=== PATIENT | female | born 1955 | race Caucasian/White ===

== ENCOUNTER 2016-08-29 15:47 | Outpatient (CLI) | payer BC | END 2016-08-29 15:48 | disposition home or self-care (01) | DX: G47.30 Sleep apnea, unspecified (principal); G47.8 Other sleep disorders; G47.10 Hypersomnia, unspecified; R06.83 Snoring ==

== ENCOUNTER 2016-10-22 14:11 | Outpatient (CLI) | payer BC | END 2016-10-22 14:12 | disposition home or self-care (01) | LOC: SC 14:11 | PROVIDERS: ATTEND Nurse Practitioner Family | DX: G47.33 Obstructive sleep apnea (adult) (pediatric) (principal) | CPT/HCPCS: 99212; 99214 ==

== ENCOUNTER 2016-12-26 09:05 | Outpatient (CLI) | payer BC | END 2016-12-26 09:06 | disposition home or self-care (01) | LOC: SC 09:05 | PROVIDERS: ATTEND Nurse Practitioner Family | DX: G47.33 Obstructive sleep apnea (adult) (pediatric) (principal) | CPT/HCPCS: 99212; 99214 ==

== ENCOUNTER 2017-01-05 08:55 | Outpatient (CLI) | payer BC ==
[2017-01-05 09:25] LABS: ALBUMIN/GLOBULIN RATIO 1.2 (1.0-2.2); BILIRUBIN,TOTAL 1.1 mg/dL (0.2-1.0); BUN - BLOOD UREA NITROGEN 19 mg/dL (6-20); CALCIUM 9.5 mg/dL (8.5-10.3); CARBON DIOXIDE - CO2 28 mmol/L (21-32); CHLORIDE 103 mmol/L (101-111); CHOLESTEROL 248 mg/dL; CREATININE 0.8 mg/dL (0.4-1.0); GFR - MDRD 73 (>89); GLUCOSE 98 mg/dL (70-100); HDL CHOLESTEROL 50 mg/dL; LDL/HDL RATIO 3.2 (<4.4); POTASSIUM 4.1 mmol/L (3.5-5.0); SODIUM 139 mmol/L (135-145); TOTAL PROTEIN 7.5 g/dL (6.7-8.2); TRIGLYCERIDES 198 mg/dL; VLDL CHOLESTEROL 40 mg/dL
== END 2017-01-05 08:56 | disposition home or self-care (01) ==
LOC: LAB 08:55
PROVIDERS: ATTEND Registered Nurse
DX: E66.9 Obesity, unspecified (principal); E78.5 Hyperlipidemia, unspecified; E03.9 Hypothyroidism, unspecified; E55.9 Vitamin D deficiency, unspecified
CPT/HCPCS: 36415; 80053; 80061; 82306; 84443

== ENCOUNTER 2017-01-16 16:04 | Outpatient (CLI) | payer BC ==
--- NOTE | 2017-01-17 10:17 | Mammography Report ---
DIGITAL SCREENING MAMMOGRAM: 01/16/2017 CLINICAL INDICATION: A 61-year-old with history of late childbearing, for screening. COMPARISON: 07/2014, 11/2012, 10/2011, 06/2010, 12/2008. TECHNIQUE: Routine CC and MLO projections were obtained of the breasts. FINDINGS: Scattered fibroglandular tissue is present within the breasts. There are no dominant julissa s, suspicious microcalcifications, or secondary signs of malignancy. In comparison to the previous st udies, there are no significant changes. ASSESSMENT: NO MAMMOGRAPHIC EVIDENCE OF MALIGNANCY. NO SIGNIFICANT INTERVAL CHANGES. RECOMMENDATION: Screening mammography is recommended annually. BIRADS category 1 - negative. STANDARD QUALIFYING STATEMENTS 1. This examination was reviewed with the aid of Computed-Aided Detection (CAD). 2. A negative or benign imaging report should not delay biopsy if clinically suspicious findings are present. Consider surgical consultation if warranted. More than 5% of cancers are not identified by i maging. 3. Dense breasts may obscure an underlying neoplasm. JOB #: [id number] EXT JOB #:[id number]
== END 2017-01-16 16:05 | disposition home or self-care (01) ==
LOC: DI 16:04
PROVIDERS: ATTEND Registered Nurse
DX: Z12.31 Encounter for screening mammogram for malignant neoplasm of breast (principal)
CPT/HCPCS: 77067

== ENCOUNTER 2017-04-17 15:16 | Outpatient (CLI) | payer BC | END 2017-04-17 15:17 | disposition home or self-care (01) | LOC: SC 15:16 | PROVIDERS: ATTEND Nurse Practitioner Family | DX: G47.33 Obstructive sleep apnea (adult) (pediatric) (principal) | CPT/HCPCS: 99212; 99214 ==

== ENCOUNTER 2018-03-18 14:53 | Outpatient (CLI) | payer BC | END 2018-03-18 14:54 | disposition home or self-care (01) | LOC: SC 14:53 | PROVIDERS: ATTEND Nurse Practitioner Family | DX: G47.33 Obstructive sleep apnea (adult) (pediatric) (principal) | CPT/HCPCS: 99212; 99213 ==

== ENCOUNTER 2018-09-20 12:59 | Outpatient (CLI) | payer BC ==
[2018-09-20] MEDS ORDERED: ALBUTEROL NEB 2.5 MG/3 ML INH SCH (13:09)
== END 2018-09-20 13:00 | disposition home or self-care (01) ==
LOC: RT 12:59
PROVIDERS: ATTEND Nurse Practitioner Family
DX: R05 Cough (principal)
CPT/HCPCS: 94060

== ENCOUNTER 2018-11-10 14:53 | Outpatient (CLI) | payer BC ==
--- NOTE | 2018-11-11 09:43 | Mammography Report ---
Reason: ENCOUNTER FOR SCREENING MAMMOGRAM FOR MALIGNANT NE Procedure Date: 11/10/2018 Accession Number: [id number] / [id number] Procedure: [facility] - Screening Mammo w/Diallo CPT Code: FULL RESULT: EXAM: Screening Mammo w/Diallo DATE: 11/10/2018 3:26 PM CLINICAL HISTORY: History of early menses and late childbearing. TECHNIQUE: (B) - Bilateral CC and MLO views were obtained. COMPARISON: 01/16/2017 through 11/02/2011. PARENCHYMAL PATTERN: (A) - The breast(s) demonstrate(s) scattered fibroglandular densities. FINDINGS: There are no suspicious masses, calcifications, or areas of distortion. IMPRESSION: Negative examination. BI-RADS category 1. RECOMMENDATION: (ANNUAL) - Recommend routine annual screening mammography. BI-RADS CATEGORY: (1) - Negative. STANDARD QUALIFYING STATEMENTS: 1. This examination was not reviewed with the aid of Computer-Aided Detection (CAD). 2. A negative or benign imaging report should not preclude biopsy if clinically suspicious findings are present. 3. Dense breasts may obscure an underlying neoplasm. 4. This examination was reviewed with the aid of 3D breast imaging (tomosynthesis).
== END 2018-11-10 14:54 | disposition home or self-care (01) ==
LOC: DI 14:53
PROVIDERS: ATTEND Registered Nurse
DX: Z12.31 Encounter for screening mammogram for malignant neoplasm of breast (principal)
CPT/HCPCS: 77063; 77067

== ENCOUNTER 2019-04-15 15:02 | Outpatient (CLI) | payer BC ==
[2019-04-15 16:07] VITALS: BP 100/70
--- NOTE | 2019-04-15 16:07 | SLEEP CARE CONSULTATION ---
Information from patient questionnaire entered by Arleth Nice. I have reviewed and concur with the information entered by Arleth Nice. This document represents the service I personally performed and the decisions made by me, Maria Hill, RN, MSN, [employer]EL[employer]GER. History of Present Illness Previous diagnosis: Moderate, Obstructive Sleep Apnea-Hypopnea Syndrome AHI: 20.3 Reason for follow up: annual (last seen 2018) Equipment type: CPAP Equipment obtained from: [facility] Mask style: Nasal (Dreamwear) Mask brand: Respironics Backup mask available: No Last cushion change: 1 month CPAP Compliance Data - Data Reviewed with Patient Average duration of nightly device use: 7.5 Compliance rate %: 98.9 (180 days) Current pressure setting (cmH2O): 10 Humidity settin Heated hose settin Average residual AHI: 0.7 Average large leak: 5 min 36 sec Subjective Patient concerns: reports: air blowing in eyes (rare occasion), condensation in mask/hose (occasionally), dry mouth, nose, throat, other (mask lines most days. ). denies: aerophagia, mask discomfort, mask leak noise, nasal congestion, epistaxis Observed to snore while using device: No Current pressure setting perceived as: comfortable On therapy, patient: reports: sleeping better, awakening more refreshed, being more awake and alert during the day, more rested overall. denies: drowsiness while driving Initial [place] Sleepiness Scale score: 9 Current [place] Sleepiness Scale score: 3 Allergies and Home Medications Known drug allergies: No Home medication list reviewed: Yes (see list - added glucosamine and B12 / started inhaler bid for COPD) Allergy and home medication list: Medication List Medication Name (generic/name brand) Strength & Dosage Levothyroxine Sodium 100mcg tab one daily Multivitamin Tab one daily Fish Oil 1200mg cap one daily Calcium 500mg tab one daily Vitamin D 1000unit tab one daily Glucosamine 2 daily B12 daily Respimat inhaler 1 inhalation bid Review of Systems Review of systems same as previous: No (Just diagnosed with possible COPD) Physical Exam Blood Pressure: 100/70 Heart Rate: 70 O2 Saturation: 94 Height: 5 ft 6 in Weight: 278 lb 6.4 oz Body Mass Index: 44.9 BMI Classification: Obesity Class 3 Impression and Plan 1. Obstructive Sleep Apnea-Hypopnea Syndrome, moderate, with good treatment compliance and good apnea control. On CPAP therapy, the patient has better sleep quality and is more rested overall. To reduce vibratory snore, I showed her a CPAP pillow. This and other styles can be bought online. To reduce oral dryness, she was instructed to increase humidity and reduce heated hose as shown on sample device. Printed instructions given with rationale discussed for changing. To reduce mask lines, I showed her Pad A Cheek barriers and phamplet given. She is planning on working on her weight loss and feels she will be more successful after she retires next year. Thus I explained how significant weight loss will reduce her apnea severity, CPAP pressure requirements and overall health risks associated with obesity. She was informed of symptoms to report for CPAP pressure adjustment. Patient's apnea severity and rationale for treatment to reduce apnea, improve sleep quality and reduce cardiovascular and cerebrovascular events was reviewed. * Continue CPAP pressure at 10 cmH2O * Consider CPAP pillow, Pad A cheek cloth barrier * Adjust humidity and heated hose * Notify me if snoring with mask or feeling that the pressure is too much or too little * Attempt to lose weight * Return for follow up in 1 year or sooner if concerns arise I spent 100% of this 35 minute visit face to face with the patient with greater than 50% of this was spent time counseling the patient and coordination of care.
== END 2019-04-15 15:03 | disposition home or self-care (01) ==
LOC: SC 15:02
PROVIDERS: ATTEND Nurse Practitioner Family
DX: G47.33 Obstructive sleep apnea (adult) (pediatric) (principal); E66.9 Obesity, unspecified; Z68.41 Body mass index [BMI] 40.0-44.9, adult
CPT/HCPCS: 99212; 99214

== ENCOUNTER 2019-11-20 07:00 | Outpatient (CLI) | payer BC ==
--- NOTE | 2019-11-20 11:49 | Ultrasound Report ---
PROCEDURE: Abdomen Limited INDICATIONS: NONSPEC ELEVATED LEVELS OF TRANSAMNS LACTIC ACID TECHNIQUE: Real-time scanning was performed of the abdominal and retroperitoneal organs, with image documentatio n. COMPARISON: None. FINDINGS: Liver: Liver is normal in size measuring 16.2 cm in length. The parenchyma is mildly coarse and diff usely hyperechoic. No discrete masses are visible. Appropriate direction of flow in the portal vein. Gallbladder: The gallbladder is normal without stones or sludge. Normal wall thickness at 2 mm. No pe richolecystic fluid or sonographic Rodriguez sign. There is relative hypoechogenicity in the gallbladder fossa along the liver surface secondary to focal fatty sparing. Biliary ducts: Intrahepatic bile ducts are non-dilated. Extrahepatic bile duct caliber measures 5 m m. Normal is 6-7 mm or less in diameter, or 10 mm or less post-cholecystectomy. Pancreas: Visualized portions of the pancreas are sonographically normal. Kidneys: Right kidney measures 11.3 cm long; the cortex is normal thickness and echogenicity. No hy dronephrosis or nephrolithiasis. No solid masses. IVC: Intrahepatic inferior vena cava is patent. Miscellaneous: No free abdominal fluid. IMPRESSION: 1. Hepatic hyperechogenicity and parenchymal coarsening suggestive of hepatic steatosis or other intr insic liver disease. 2. Normal gallbladder and no biliary dilatation. Reviewed by: Kiley Magana MD on 11/20/2019 11:48 AM PDT Approved by: Kiley Magana MD on 11/20/2019 11:48 AM PDT Station ID: [id number]
== END 2019-11-20 07:01 | disposition home or self-care (01) ==
LOC: DI 07:00
PROVIDERS: ATTEND Nurse Practitioner Family
DX: R74.0 Nonspecific elevation of levels of transaminase and lactic acid dehydrogenase [LDH] (principal)
CPT/HCPCS: 76705

== ENCOUNTER 2020-01-26 13:04 | Outpatient (CLI) | payer BC ==
--- NOTE | 2020-01-26 16:59 | XRAY Report ---
PROCEDURE: Ankle 2 View RT INDICATIONS: PAIN IN RIGHT ANKLE JOINT TECHNIQUE: 2 views of the ankle were acquired. COMPARISON: None. FINDINGS: Bones: No acute fractures or dislocations. Moderate degenerative changes of the tibiotalar joint. M ild cortical irregularity of the medial ankle gutter and medial malleolus. There is overlying soft ti ssue edema. Prominent plantar calcaneal and retrocalcaneal spurring. Ankle mortise is normally aligne d. No suspicious bony lesions. Soft tissues: No tibiotalar joint effusion. Achilles tendon appears normal. IMPRESSION: Moderate tibiotalar osteoarthritic changes with mild cortical irregularity of the medial malleolus and medial ankle gutter. Overlying soft tissue edema. Recommend excluding concurrent infla mmatory infectious symptoms. Prominent plantar calcaneal and retrocalcaneal enthesopathy. Reviewed by: Kam Felipe MD on 01/26/2020 4:58 PM PDT Approved by: Kam Felipe MD on 01/26/2020 4:58 PM PDT Station ID: [id number]
--- NOTE | 2020-01-26 17:19 | XRAY Report ---
PROCEDURE: Knee 3 View BILAT INDICATIONS: BILATERAL RIGHT KNEE PAIN TECHNIQUE: 3 views of the bilateral knee(s) were acquired. COMPARISON: None. FINDINGS: Bones: No acute fractures or dislocations. Tricompartmental degenerative changes of the bilateral kn ees. Distal quadriceps enthesopathy of the superior right patella. No suspicious bony lesions. Soft tissues: Small left greater than right bilateral joint effusion. No suspicious soft tissue calc ifications. IMPRESSION: Tricompartmental osteoarthrosis of the bilateral knee. Small left greater than right bilateral joint effusion. Distal quadriceps enthesopathy of the right patella/knee. Reviewed by: Kam Felipe MD on 01/26/2020 5:18 PM PDT Approved by: Kam Felipe MD on 01/26/2020 5:18 PM PDT Station ID: [id number]
== END 2020-01-26 13:05 | disposition home or self-care (01) ==
LOC: DI.S 13:04
PROVIDERS: ATTEND Registered Nurse
DX: M19.071 Primary osteoarthritis, right ankle and foot (principal); M17.0 Bilateral primary osteoarthritis of knee; M77.31 Calcaneal spur, right foot; M76.51 Patellar tendinitis, right knee

== ENCOUNTER 2020-02-18 12:46 | Outpatient (CLI) | payer BC ==
--- NOTE | 2020-02-18 14:38 | DEXA Report ---
PROCEDURE: Dexa Spine and/or Hip INDICATIONS: OSTEOPENIA TECHNIQUE: Dual energy x-ray absorptiometry (DXA) was performed on a [employer] System. Regions measur ed are the AP Spine, femoral neck, and if needed forearm. COMPARISON: 07/29/2014. FINDINGS: Lumbar Spine: Bone Mineral Density 1.428 g/cm/cm,T score 1.9, normal Left Femoral Neck: Bone Mineral Density 0.942 g/cm/cm, T score -0.5, normal (T score greater or equal to -1.0: NORMAL) (T score from -1.1 to -2.4: OSTEOPENIA) (T score less than or equal to -2.5 to: OSTEOPOROSIS) Impression: Normal bone density. Patients with diagnosis of osteoporosis or osteopenia should have regular bone mineral density assess ment. For those eligible for Medicare, routine testing is allowed once every 2 years. Testing frequ ency can be increased for patients who have rapidly progressing disease or for those who are receivin g medical therapy to restore bone mass. Reviewed by: Kam Felipe MD on 02/18/2020 2:36 PM PDT Approved by: Kam Felipe MD on 02/18/2020 2:36 PM PDT Station ID: [id number]
== END 2020-02-18 12:47 | disposition home or self-care (01) ==
LOC: DI 12:46
PROVIDERS: ATTEND Registered Nurse
DX: Z78.0 Asymptomatic menopausal state (principal)
CPT/HCPCS: 77080

== ENCOUNTER 2020-04-05 10:07 | Outpatient (CLI) | payer BC ==
--- NOTE | 2020-04-05 10:54 | SLEEP CARE CONSULTATION ---
Information from patient questionnaire entered by Arleth Nice. I have reviewed and concur with the information entered by Arleth Nice. This document represents the service I personally performed and the decisions made by me, Neeru Padron MD, [facility]. History of Present Illness Service Date and Time: 04/05/2020 1007 Previous diagnosis: Moderate, Obstructive Sleep Apnea-Hypopnea Syndrome AHI: 20.3 (in 2017) Reason for follow up: annual (last seen 04/2019) Equipment type: CPAP Equipment obtained from: [email or web address] Mask style: Nasal Mask brand: Respironics (Dreamwear) Backup mask available: Yes Prior sleep studies: Yes Year and Where: 2017 - [facility] Type of Sleep Study: Home sleep study HPI additional information: HPI: Ms. Hurley returns today to follow up on the nasal CPAP therapy. She was diagnosed to have moderate obstructive sleep apnea-hypopnea syndrome. Her durable medical supplier is [email or web address]. The patient wears with a Respironics DreamWear nasal cushion mask. She reports using the device nightly and all through the night. The compliance data show usage in 180 out of the past 180 nights, averaging 8.3 hours a night. The > 4 hour compliance rate for the past 180 days is 100%. She complained of dry mouth. The heated humidifier is set at 4. She thinks that the pressure of 10 cmH2O is comfortable. On the CPAP therapy she notices improvement in her sleep quality, and that she wakes up feeling fresher in the morning and more awake/alert during the day. The [place] Sleepiness Scale score 3. Her notices no snore at all. The average residual AHI is 0.7: and average time in large leak per day is 53 seconds. CPAP Compliance Data - Data Reviewed with Patient Average duration of nightly device use: 8 hr 21 min Compliance rate %: 100 (180 days) Current pressure setting (cmH2O): 10 Humidity settin Heated hose settin Average residual AHI: 0.7 Average large leak: 53 sec Subjective Patient concerns: reports: dry mouth, nose, throat Initial [place] Sleepiness Scale score: 9 (in 2017) Current [place] Sleepiness Scale score: 3 Allergies and Home Medications Drug allergies reviewed: Yes Home medication list reviewed: Yes Review of Systems Review of systems same as previous: Yes Physical Exam Vital signs obtained and entered by: To minimize the risk of COVID-19 exposure, detailed exam was not performed. Height: 5 ft 6 in Weight: 250 lb Body Mass Index: 40.3 BMI Classification: Morbidly Obese Impression and Plan IMPRESSION: 1. Obstructive Sleep Apnea-Hypopnea Syndrome, moderate (20.3), with the patient continuing to do well on nasal CPAP therapy. She has excellent compliance and significant clinical improvement. The current pressure appears effective and comfortable. Her mask fits well. Overall, she is very satisfied with treatment and plans to continue with it long-term. No adjustment is necessary today. Because [facility] discontinues its CPAP business, I will switch her to a different durable medical supplier. She would like to use [employer]. PLAN: 1. Continue with CPAP set at 10 cmH2O. 2. Try to lose weight 3. Prescription made for supplies and sent to [facility] in [place]. 4. Return in one year for follow up or earlier if there is any problem with the treatment. Visit Type: In Office Time Spent with Patient (minutes): 15 Provider Statement: I spent 100% of the Face to Face Visit with the patient with greater than 50% spent counseling the patient and coordination of care.
== END 2020-04-05 10:08 | disposition home or self-care (01) ==
LOC: SC 10:07
PROVIDERS: ATTEND Internal Medicine Pulmonary Disease
DX: G47.33 Obstructive sleep apnea (adult) (pediatric) (principal); E66.01 Morbid (severe) obesity due to excess calories; Z68.41 Body mass index [BMI] 40.0-44.9, adult
CPT/HCPCS: 99212; 99213

== ENCOUNTER 2020-07-19 07:00 | Outpatient (CLI) | payer BC ==
[2020-07-19 16:26] LABS: BILIRUBIN,URINE NEGATIVE (NEGATIVE); GLUCOSE, URINE (UA) NEGATIVE (NEGATIVE); KETONES,URINE (UA) NEGATIVE (NEGATIVE); LEUKOCYTE ESTERASE, URINE TRACE (NEGATIVE); NITRITE,URINE NEGATIVE (NEGATIVE); OCCULT BLOOD,URINE NEGATIVE (NEGATIVE); PROTEIN,URINE NEGATIVE (NEGATIVE); UROBILINOGEN,URINE 0.2 (NORMAL) E.U./dL (NORMAL)
[2020-07-19 16:52] LABS: BACTERIA,URINE Moderate /HPF (None Seen); CLARITY,URINE HAZY (CLEAR); RBC,URINE None Seen /HPF (0-5); SQUAMOUS EPITHELIAL CELL,UR FEW Squamous (<= Few)
== END 2020-07-19 23:59 | disposition home or self-care (01) ==
LOC: LAB.R 07:00
PROVIDERS: ATTEND Obstetrics & Gynecology
DX: R32 Unspecified urinary incontinence (principal)
CPT/HCPCS: 81001; 87086

== ENCOUNTER 2020-07-19 14:19 | Outpatient (CLI) | payer BC ==
[2020-07-19 20:38] LABS: ESTIMATED AVERAGE GLUCOSE 111 mg/dL (70-100); HEMOGLOBIN A1c% 5.5 % (4.27-6.07)
== END 2020-07-19 14:20 | disposition home or self-care (01) ==
LOC: LAB 14:19
PROVIDERS: ATTEND Obstetrics & Gynecology
DX: Z13.1 Encounter for screening for diabetes mellitus (principal); R32 Unspecified urinary incontinence
CPT/HCPCS: 36415; 82947; 83036

== ENCOUNTER 2020-09-13 08:00 | Outpatient (CLI) | payer BC ==
[2020-09-14 22:43] LABS: BACTERIAL VAGINOSIS DNA NEGATIVE (NEGATIVE); CANDIDA GLABRATA DNA NEGATIVE (NEGATIVE); CANDIDA GROUP DNA NEGATIVE (NEGATIVE); CANDIDA KRUSEI DNA NEGATIVE (NEGATIVE); TRICHOMONAS VAGINALIS DNA NEGATIVE (NEGATIVE)
== END 2020-09-13 23:59 | disposition home or self-care (01) ==
LOC: LAB.R 08:00
PROVIDERS: ATTEND Obstetrics & Gynecology
DX: R32 Unspecified urinary incontinence (principal)
CPT/HCPCS: 87661; 87801

== ENCOUNTER 2020-09-20 08:00 | Outpatient (CLI) | payer BC ==
[2020-09-21 21:52] LABS: BACTERIAL VAGINOSIS DNA NEGATIVE (NEGATIVE); CANDIDA GLABRATA DNA NEGATIVE (NEGATIVE); CANDIDA GROUP DNA NEGATIVE (NEGATIVE); CANDIDA KRUSEI DNA NEGATIVE (NEGATIVE); TRICHOMONAS VAGINALIS DNA NEGATIVE (NEGATIVE)
== END 2020-09-20 23:59 | disposition home or self-care (01) ==
LOC: LAB.WC 08:00
PROVIDERS: ATTEND Obstetrics & Gynecology
DX: L29.2 Pruritus vulvae (principal)
CPT/HCPCS: 87661; 87801

== ENCOUNTER 2020-11-09 08:56 | Outpatient (CLI) | payer BC ==
--- NOTE | 2020-11-10 10:50 | Mammography Report ---
BILATERAL DIGITAL SCREENING MAMMOGRAM 3D/2D: 11/09/2020 CLINICAL: Routine screening. Comparison is made to exams dated: 11/10/2018 mammogram, 01/16/2017 mammogram, and 07/29/2014 mammogram - [facility]. The tissue of both breasts is predominantly fatty. No significant masses, calcifications, or other findings are seen in either breast. There has been no significant interval change. IMPRESSION: NEGATIVE There is no mammographic evidence of malignancy. A 1 year screening mammogram is recommended. This exam was interpreted at Station ID: [id number]. NOTE: For mammograms, a report in lay terms will be sent to the patient. Approximately 15% of breast malignancies will not be visualized mammographically. In the management of a palpable breast mass, a negative mammogram must not discourage biopsy of a clinically suspicious lesion. Electronically Signed By: Kiley hitchcock/penrad:11/09/2020 10:05:13 ACR BI-RADS Category 1: Negative 3341F PARENCHYMAL PATTERN: (F) - The breast(s) demonstrate(s) diffuse fatty replacement. BI-RADS CATEGORY: (1) - 1 RECOMMENDATION: (ANNUAL) - Recommend routine annual screening mammography. [id number] 1 year screening LATERALITY: (B)
== END 2020-11-09 08:57 | disposition home or self-care (01) ==
LOC: DI.S 08:56
PROVIDERS: ATTEND Obstetrics & Gynecology
DX: Z12.31 Encounter for screening mammogram for malignant neoplasm of breast (principal)

== ENCOUNTER 2021-04-19 15:10 | Outpatient (CLI) | payer BC ==
[2021-04-19 15:46] VITALS: BP 111/82
--- NOTE | 2021-04-19 15:46 | SLEEP CARE CONSULTATION ---
Information from patient questionnaire entered by Jose Guadalupe Tim MA. I have reviewed and concur with the information entered by Jose Guadalupe Tim MA. This document represents the service I personally performed and the decisions made by , Andria Yarbrough ARNP. History of Present Illness Service Date and Time: 04/19/2021 1510 Previous diagnosis: Moderate, Obstructive Sleep Apnea-Hypopnea Syndrome AHI: 20.3 (in 2017) Reason for follow up: annual Equipment type: CPAP Equipment obtained from: [employer] (getting supplies as needed) Mask style: Nasal Backup mask available: Yes (other mask) Last cushion change: 2 weeks ago Prior sleep studies: Yes Year and Where: 2016 - [facility] Type of Sleep Study: Home sleep study HPI additional information: ABELARDO MENDOZA was diagnosed to have moderate, AHI 20.3, obstructive sleep apnea- hypopnea syndrome and returned today for CPAP therapy annual follow-up. Sleep Study - Results Type of Sleep Study: Home sleep study Prior sleep studies: Yes Year and Where: 2016 - [facility] CPAP Compliance Data - Data Reviewed with Patient Average duration of nightly device use: 8 hours 16 minutes Compliance rate %: 100 Current pressure setting (cmH2O): 10 Humidity settin Heated hose settin Average residual AHI: 0.5 Average large leak: 2 minute 5 seconds Subjective Patient concerns: reports: dry mouth, nose, throat, other (mask headgear tight on face because the strap is smaller than her previous one). denies: aerophagia, mask discomfort, air blowing in eyes, mask leak noise, condensation in mask/hose, nasal congestion, epistaxis Observed to snore while using device: No Current pressure setting perceived as: comfortable On therapy, patient: reports: sleeping better, awakening more refreshed, being more awake and alert during the day, more rested overall. denies: drowsiness while driving Initial [place] Sleepiness Scale score: 9 (in 2016) Current [place] Sleepiness Scale score: 2 (2020) Allergies and Home Medications Home medication list reviewed: Yes (atorvastatin) Review of Systems Review of systems same as previous: Yes (no changes) Physical Exam Vital signs obtained and entered by: ELANA OCAMPO Blood Pressure: 111/82 (LEFT) Cuff size: wrist Heart Rate: 82 O2 Saturation: 98 (WITH MASK) Height: 5 ft 6 in Weight: 258 lb (INFO PER PT PRIOR DR ALANIZ) Body Mass Index: 41.6 BMI Classification: Morbidly Obese Impression and Plan 1. Obstructive Sleep Apnea-Hypopnea Syndrome, moderate, with good treatment compliance and good apnea control. On CPAP therapy, the patient has better sleep quality and is more rested overall. Patient is satisfied with current CPAP therapy and has significant improvement of her apneas. I informed the patient that [employer] has a recall on several devices like the patients machine. Patient was encouraged to register their device online with [employer] for the recall to see if their device is affected. If their device is affected they should start a claim. Patient denies any black particles seen in machine or hoses, any unusual odors coming from device. Patient has not experienced any physical symptoms such as upper airway irritation, headache, skin or eye irritation, asthma, nausea/vomiting, difficulty breathing or chest pain. If patient is not able to sleep due to waking up choking, gasping for air or other respiratory distress that they may decide to continue using it until it is either replaced or repaired. Patient is going to continue to use her [employer]. She will call here to set up a appointment to update her device and she is eligible for a new machine in November 2021 if she has not received a new device from [employer]. Patient voiced understanding and agreement with plan. Patient's apnea severity and rationale for treatment to reduce apnea, improve sleep quality and reduce cardiovascular and cerebrovascular events was reviewed. Patient encouraged to try to lose weight to improve her overall health and reduce apneas. * Continue auto CPAP pressure at 10 cmH2O * Notify me if snoring with mask or feeling that the pressure is too much or too little * Attempt to lose weight * Call this office if any problems using CPAP * Return for follow up in 1 year, or sooner if concerns arise Counseling Topics: Spare mask, Weight loss health impact Visit Type: In Office Time Spent with Patient (minutes): 23 Provider Statement: I spent 100% of the Face to Face Visit with the patient with greater than 50% spent counseling the patient and coordination of care.
== END 2021-04-19 15:11 | disposition home or self-care (01) ==
LOC: SC 15:10
PROVIDERS: ATTEND Nurse Practitioner Family
DX: G47.33 Obstructive sleep apnea (adult) (pediatric) (principal); E66.01 Morbid (severe) obesity due to excess calories; Z68.41 Body mass index [BMI] 40.0-44.9, adult
CPT/HCPCS: 99212; 99213

== ENCOUNTER 2023-05-15 14:41 | Outpatient (CLI) | payer MEDICARE, BC ==
--- NOTE | 2023-05-17 11:35 | Mammography Report ---
BILATERAL DIGITAL SCREENING MAMMOGRAM 3D/2D: 05/15/2023 CLINICAL: Routine screening. Comparison is made to exams dated: 11/09/2020 mammogram, 11/10/2018 mammogram, [facility] There are scattered areas of fibroglandular density in both breasts (category b / 25%-50% glandular t issue). No significant masses, calcifications, or other findings are seen in either breast. There has been no significant interval change. IMPRESSION: NEGATIVE There is no mammographic evidence of malignancy. A 1 year screening mammogram is recommended. Based on the Tyrer Cuzick model (a risk assessment model) the patients lifetime risk is 6.0% and her 10 year risk is 3.0%. According to the ACR, ACS, and NCCN guidelines, an annual breast MRI exam jane g with mammogram is recommended if the patients lifetime risk is 20% or greater. This exam was interpreted at Station ID: [id number]. NOTE: For mammograms, a report in lay terms will be sent to the patient. Approximately 15% of breast malignancies will not be visualized mammographically. In the management of a palpable breast mass, a negative mammogram must not discourage biopsy of a clinically suspicious lesion. Electronically Signed By: Noe carson/alex:05/16/2023 09:45:43 letter sent: No_Letter ACR BI-RADS Category 1: Negative 3341F PARENCHYMAL PATTERN: (A) - The breast(s) demonstrate(s) scattered fibroglandular densities. BI-RADS CATEGORY: (1) - 1 Mammogram [id number] 1 year screening LATERALITY: (B)
== END 2023-05-15 14:42 | disposition home or self-care (01) ==
LOC: DI 14:41
PROVIDERS: ATTEND Registered Nurse
DX: Z12.31 Encounter for screening mammogram for malignant neoplasm of breast (principal); R92.323 Mammographic fibroglandular density, bilateral breasts